=== PATIENT | female | born 1955 | race Asian ===

== ENCOUNTER 2020-08-04 20:57 | Inpatient (IN) | payer OTHER, MEDICAID ==
[~2020-08-04] VITALS: Ht 154.9 cm; Wt 43.1 kg
[2020-08-04 21:17] VITALS: BP_SYST 161
[2020-08-04] MEDS ORDERED: NACL 0.9% 1,000 ML IV ONE ×2 (22:00→23:30)
[2020-08-04 22:43] LABS: BASOPHILS % (AUTO) 0.2 % (0.0-2.0); EOSINOPHILS % (AUTO) 0.7 % (0.0-4.0); LYMPHOCYTES # (AUTO) 0.8 K/uL (1.0-5.5); LYMPHOCYTES % (AUTO) 25.8 % (20.5-51.5); MEAN CORPUSCULAR HEMOGLOBIN 31 pg (27-31); MEAN CORPUSCULAR HGB CONC 34 % (32-36); MEAN CORPUSCULAR VOLUME 90 fL (79.0-98.0); MONOCYTES # (AUTO) 0.4 K/uL (0.0-1.0); MONOCYTES % (AUTO) 12.7 % (1.7-9.3); NEUTROPHILS # (AUTO) 1.8 K/uL (1.8-7.7); NEUTROPHILS % (AUTO) 60.6 % (40.0-70.0); PLATELET COUNT (AUTO) 191 K/uL (130-430); RED BLOOD CELL COUNT(AUTO) 4.56 MIL/uL (4.2-6.2); RED CELL DISTRIBUTION WIDTH 13.1 % (9.0-15.0)
[2020-08-04 22:58] LABS: CALCIUM 9.2 mg/dL (8.4-11.0); CREATININE 0.93 mg/dL (0.55-1.30); POTASSIUM 4.4 mmol/L (3.5-5.1)
[2020-08-04 23:02] LABS: INR 0.9 (0.8-1.2); PROTHROMBIN TIME 9.4 SECS (9.5-12.5)
[2020-08-04 23:13] LABS: ALBUMIN 3.8 g/dL (3.4-4.8); FREE T4 (FREE THYROXINE) 1.4 ng/dl (0.8-1.5); THYROID STIMULATING HORMONE 2.39 uIu/mL (0.36-3.74); TOTAL BILIRUBIN 1.6 mg/dL (0.0-1.0)
[2020-08-04 23:34] LABS: BILIRUBIN,URINE 1+ (NEGATIVE); BLOOD, URINE 2+ (NEGATIVE); CLARITY/URINE CLEAR (CLEAR); COLOR,URINE YELLOW (YELLOW); GLUCOSE,URINE NEGATIVE (NEGATIVE); KETONES,URINE 3+ (NEGATIVE); LEUKOCYTE ESTERASE ,URINE NEGATIVE (NEGATIVE); NITRITE, URINE NEGATIVE (NEGATIVE); PROTEIN URINE 1+ (NEGATIVE); UROBILINOGEN,URINE 0.2 (0.2-1.0)
[2020-08-04 23:45] LABS: BACTERIA,URINE FEW /HPF (None Seen); WBC,URINE 0-3 /HPF (0-3)
[2020-08-04 23:46] LABS: BARBITURATE, URINE NEGATIVE (NEG <=200); BENZODIAZEPINE, URINE NEGATIVE (NEG <=150); CANNABINOID, URINE NEGATIVE (NEG <=50); COCAINE, URINE NEGATIVE (NEG <=150); METHAMPHETAMINES SCREEN,URINE NEGATIVE (NEG <=500); OPIATE, URINE NEGATIVE (NEG <=100); PHENCYCLIDINE SCREEN,URINE NEGATIVE (NEG <=25); UR TRICYCLIC ANTIDEPRESSANTS NEGATIVE (NEG <=300); URINE AMPHETAMINE NEGATIVE (NEG <=500); URINE METHADONE NEGATIVE (NEG <=200); URINE OXYCODONE SCREEN NEGATIVE (NEG <=100); URINE PROPOXYPHENE SCREEN NEGATIVE (NEG <=300)
[2020-08-05] MEDS ORDERED: KCL 20 mEq in D5/0.45NS 1000mL 1,000 ML IV ONE ×2 (00:15→00:41)
[2020-08-05] MEDS ORDERED: DIPHENHYDRAMINE INJ 50 MG/ML VIAL IVP ONE (00:30)
[2020-08-05] MEDS ORDERED: HALOPERIDOL LACTATE 5 MG/ML VIAL IVP ONE (00:30)
[2020-08-05] MEDS ORDERED: LORazepam 2 MG/ML VIAL IVP ONE (00:30)
[2020-08-05] MEDS ORDERED: ANT30 PO (00:34)
[2020-08-05] MEDS ORDERED: TRAZ-250 PO (00:34)
[2020-08-05] MEDS ORDERED: VIS50 PO (00:34)
[2020-08-05] MEDS ORDERED: RISP0.5T5 PO (00:34)
[2020-08-05] MEDS ORDERED: MOM PO (00:34)
[2020-08-05] MEDS ORDERED: TYLL650 PO (00:34)
[2020-08-05] MEDS ORDERED: GLUXR500 PO (00:34)
[2020-08-05] MEDS ORDERED: LEVO25TA7 PO (00:34)
[2020-08-05] MEDS ORDERED: INSU100V SQ (00:34)
[2020-08-05 02:21] VITALS: BP_SYST 131
[2020-08-05 07:36] VITALS: BP_SYST 134
[2020-08-05 11:15] VITALS: BP_SYST 142
[2020-08-05 13:44] LABS: BILIRUBIN,URINE NEGATIVE (NEGATIVE); BLOOD, URINE 2+ (NEGATIVE); CLARITY/URINE CLEAR (CLEAR); COLOR,URINE YELLOW (YELLOW); GLUCOSE,URINE NEGATIVE (NEGATIVE); KETONES,URINE 3+ (NEGATIVE); LEUKOCYTE ESTERASE ,URINE NEGATIVE (NEGATIVE); NITRITE, URINE NEGATIVE (NEGATIVE); PROTEIN URINE NEGATIVE (NEGATIVE); UROBILINOGEN,URINE 0.2 (0.2-1.0)
[2020-08-05] MEDS ORDERED: traZODone HCL 50 MG TABLET (DESYREL) PO PRN (13:45)
[2020-08-05] MEDS ORDERED: ACETAMINOPHEN 650 MG/20.3 ML UDC PO SCH (13:45)
[2020-08-05] MEDS ORDERED: ACETAMINOPHEN 650 MG/20.3 ML UDC PO PRN (13:47)
[2020-08-05] MEDS ORDERED: GLUCOSE (DEXTROSE) ORAL GEL -Adults PO PRN (14:00)
[2020-08-05] MEDS ORDERED: D5W 1,000 ML IV PRN (14:00)
[2020-08-05] MEDS ORDERED: DEXTROSE 50%-WATER 50 ML DISP.SYRIN IVP PRN (14:00)
[2020-08-05 14:26] LABS: BACTERIA,URINE RARE /HPF (None Seen); WBC,URINE 0-3 /HPF (0-3)
[2020-08-05 16:01] VITALS: BP_SYST 132
[2020-08-05] MEDS: INSULIN REGULAR, HUMAN 100 UNITS/ML, 10 ML VIAL (humuLIN R) SUBCUT PRN ×3 (17:11→20:43)
[2020-08-05 20:15] VITALS: BP_SYST 127
[2020-08-05] MEDS: MEGESTROL ACETATE 400 MG/10 ML UDC PO SCH ×2 (20:18→20:38)
[2020-08-05] MEDS: ENOXAPARIN SODIUM 40 MG/0.4 ML SYRINGE SUBCUT SCH ×2 (20:25→20:43)
[2020-08-06 00:50] VITALS: BP_SYST 128
[2020-08-06] MEDS: LEVOTHYROXINE SODIUM 0.025 MG TABLET PO SCH (06:26)
[2020-08-06 07:45] VITALS: BP_SYST 130
[2020-08-06] MEDS: MEGESTROL ACETATE 400 MG/10 ML UDC PO SCH ×2 (09:20→23:02)
[2020-08-06] MEDS: INSULIN REGULAR, HUMAN 100 UNITS/ML, 10 ML VIAL (humuLIN R) SUBCUT PRN ×3 (11:37→23:08)
[2020-08-06] MEDS: KCL 20 mEq in D5/0.45NS 1000mL 1,000 ML IV SCH (14:58)
[2020-08-06 15:14] VITALS: BP_SYST 138
[2020-08-06 20:00] VITALS: BP_SYST 143
[2020-08-06] MEDS: MIRTAZAPINE 15 MG TABLET PO SCH (23:02)
[2020-08-06] MEDS: ENOXAPARIN SODIUM 40 MG/0.4 ML SYRINGE SUBCUT SCH (23:06)
[2020-08-07 00:10] VITALS: BP_SYST 127
[2020-08-07] MEDS: KCL 20 mEq in D5/0.45NS 1000mL 1,000 ML IV SCH ×3 (01:07→22:16)
[2020-08-07] MEDS: LEVOTHYROXINE SODIUM 0.025 MG TABLET PO SCH (06:07)
[2020-08-07 08:00] VITALS: BP_SYST 129
[2020-08-07 12:30] VITALS: BP_SYST 141
[2020-08-07 16:27] VITALS: BP_SYST 128
[2020-08-07 20:00] VITALS: BP_SYST 137
[2020-08-07] MEDS: ENOXAPARIN SODIUM 40 MG/0.4 ML SYRINGE SUBCUT SCH (21:00)
[2020-08-07] MEDS: MIRTAZAPINE 15 MG TABLET PO SCH (21:00)
[2020-08-07] MEDS: MEGESTROL ACETATE 400 MG/10 ML UDC PO SCH (21:00)
[2020-08-08 00:36] VITALS: BP_SYST 118
[2020-08-08] MEDS: LEVOTHYROXINE SODIUM 0.025 MG TABLET PO SCH (07:00)
[2020-08-08] MEDS: KCL 20 mEq in D5/0.45NS 1000mL 1,000 ML IV SCH ×2 (07:13→16:52)
[2020-08-08 08:00] VITALS: BP_SYST 126
[2020-08-08] MEDS: MEGESTROL ACETATE 400 MG/10 ML UDC PO SCH ×2 (08:00→20:59)
[2020-08-08 11:26] VITALS: BP_SYST 133
[2020-08-08 15:18] VITALS: BP_SYST 148
[2020-08-08 19:45] VITALS: BP_SYST 154
[2020-08-08] MEDS: MIRTAZAPINE 15 MG TABLET PO SCH (20:59)
[2020-08-08] MEDS: ENOXAPARIN SODIUM 40 MG/0.4 ML SYRINGE SUBCUT SCH (20:59)
[2020-08-09] VITALS: BP_SYST 147
[2020-08-09] MEDS: KCL 20 mEq in D5/0.45NS 1000mL 1,000 ML IV SCH ×3 (02:35→22:24)
[2020-08-09] MEDS: LEVOTHYROXINE SODIUM 0.025 MG TABLET PO SCH (06:17)
[2020-08-09 08:00] VITALS: BP_SYST 161
[2020-08-09 12:13] VITALS: BP_SYST 136
[2020-08-09] MEDS: MEGESTROL ACETATE 400 MG/10 ML UDC PO SCH ×2 (12:20→22:14)
[2020-08-09] MEDS: INSULIN REGULAR, HUMAN 100 UNITS/ML, 10 ML VIAL (humuLIN R) SUBCUT PRN ×2 (12:27→12:35)
[2020-08-09 16:10] VITALS: BP_SYST 151
[2020-08-09] MEDS: ENOXAPARIN SODIUM 40 MG/0.4 ML SYRINGE SUBCUT SCH (21:00)
[2020-08-09] MEDS: MIRTAZAPINE 15 MG TABLET PO SCH (22:15)
[2020-08-10] MEDS: LEVOTHYROXINE SODIUM 0.025 MG TABLET PO SCH (06:33)
[2020-08-10] MEDS: KCL 20 mEq in D5/0.45NS 1000mL 1,000 ML IV SCH ×2 (08:00→16:01)
[2020-08-10] MEDS: MEGESTROL ACETATE 400 MG/10 ML UDC PO SCH ×2 (09:00→20:57)
[2020-08-10 12:14] VITALS: BP_SYST 147
[2020-08-10] MEDS ORDERED: LORazepam 2 MG/ML VIAL IVP PRN (13:45)
[2020-08-10] MEDS: HALOPERIDOL LACTATE 5 MG/ML VIAL IM PRN ×2 (16:06→20:43)
[2020-08-10 16:12] VITALS: BP_SYST 136
[2020-08-10 20:00] VITALS: BP_SYST 134
[2020-08-10] MEDS: ENOXAPARIN SODIUM 40 MG/0.4 ML SYRINGE SUBCUT SCH (20:43)
[2020-08-10] MEDS: INSULIN REGULAR, HUMAN 100 UNITS/ML, 10 ML VIAL (humuLIN R) SUBCUT PRN (20:54)
[2020-08-10] MEDS: MIRTAZAPINE 15 MG TABLET PO SCH (20:57)
[2020-08-11] VITALS: BP_SYST 139
[2020-08-11] MEDS: KCL 20 mEq in D5/0.45NS 1000mL 1,000 ML IV SCH (02:12)
[2020-08-11] MEDS: LEVOTHYROXINE SODIUM 0.025 MG TABLET PO SCH (06:17)
[2020-08-11] MEDS: INSULIN REGULAR, HUMAN 100 UNITS/ML, 10 ML VIAL (humuLIN R) SUBCUT PRN ×2 (06:27→17:48)
[2020-08-11 06:40] LABS: BASOPHILS % (AUTO) 0.2 % (0.0-2.0); EOSINOPHILS % (AUTO) 0.7 % (0.0-4.0); HEMATOCRIT 37.2 % (36-48); HEMOGLOBIN 12.6 g/dL (12.0-16.0); LYMPHOCYTES % (AUTO) 31.8 % (20.5-51.5); MEAN CORPUSCULAR HEMOGLOBIN 30 pg (27-31); MEAN CORPUSCULAR HGB CONC 34 % (32-36); MEAN CORPUSCULAR VOLUME 90 fL (79.0-98.0); MONOCYTES # (AUTO) 0.7 K/uL (0.0-1.0); MONOCYTES % (AUTO) 11.3 % (1.7-9.3); NEUTROPHILS # (AUTO) 3.5 K/uL (1.8-7.7); PLATELET COUNT (AUTO) 249 K/uL (130-430); RED BLOOD CELL COUNT(AUTO) 4.14 MIL/uL (4.2-6.2); RED CELL DISTRIBUTION WIDTH 12.9 % (9.0-15.0); WHITE BLOOD COUNT (AUTO) 6.2 K/uL (4.8-10.8)
[2020-08-11 07:02] LABS: CALCIUM 9.4 mg/dL (8.4-11.0); CREATININE 0.82 mg/dL (0.55-1.30); POTASSIUM 5.3 mmol/L (3.5-5.1)
[2020-08-11 08:00] VITALS: BP_SYST 146
[2020-08-11] MEDS: MEGESTROL ACETATE 400 MG/10 ML UDC PO SCH ×2 (09:00→09:53)
[2020-08-11] MEDS ORDERED: D5/0.45 NS 1,000 ML IV SCH (10:00)
[2020-08-11 12:00] VITALS: BP_SYST 158
[2020-08-11 16:00] VITALS: BP_SYST 156
[2020-08-11 20:14] VITALS: BP_SYST 145
== END 2020-08-11 20:50 | DRG 70 ==
LOC: SED 20:57 → SMU 08-05 00:06
PROVIDERS: ADMIT Family Medicine; ATTEND Family Medicine
DX: G93.41 Metabolic encephalopathy (principal); R40.2123 Coma scale, eyes open, to pain, at hospital admission; E44.0 Moderate protein-calorie malnutrition; N17.9 Acute kidney failure, unspecified; E86.0 Dehydration; E11.9 Type 2 diabetes mellitus without complications; E03.9 Hypothyroidism, unspecified; I10 Essential (primary) hypertension; Z20.822 Contact with and (suspected) exposure to COVID-19; F32.9 Major depressive disorder, single episode, unspecified; F29 Unspecified psychosis not due to a substance or known physiological condition; Z79.890 Hormone replacement therapy; Z79.899 Other long term (current) drug therapy; R40.2353 Coma scale, best motor response, localizes pain, at hospital admission; R40.2242 Coma scale, best verbal response, confused conversation, at arrival to emergency department
CPT/HCPCS: 36415; 71045; 80048; 80053; 80307; 81000; 82962; 83036; 84439; 84443; 84484; 85025; 85610-TC; 85730-TC; 87081; 87086; 93005; 96360; 96361; 96365; 96375; 99285; J1200; J1630; J1650; J1815; J2060; J7030; J7042